=== PATIENT | male | born 1985 | race Caucasian/White ===

== ENCOUNTER 2016-07-04 10:41 | Emergency (ER) | payer OTHER ==
[2016-07-04] MEDS ORDERED: LIDOCAINE 1% MDV 20 ML ONE (11:51)
[2016-07-04] MEDS ORDERED: AZITHROMYCIN 250 MG TAB ONE (11:51)
[2016-07-04] MEDS ORDERED: CEFTRIAXONE 500 MG VIAL ONE (11:52)
== END 2016-07-04 12:24 | disposition home or self-care (01) ==
LOC: FASTR 10:41
CPT/HCPCS: 81001; 87088; 87491; 87591; 96372